=== PATIENT | female | born 1945 | race Asian ===

== ENCOUNTER 2020-03-29 12:36 | Emergency (ER) | payer MEDICARE, MEDICAID ==
[~2020-03-29] VITALS: Ht 154.9 cm; Wt 56.7 kg
[2020-03-29 12:45] VITALS: BP 132/80
[2020-03-29] MEDS ORDERED: Ketorolac 30mg Inj IV ONE (13:00)
--- NOTE | 2020-03-29 13:04 | Emergency Room Report ---
History of Present Illness General Chief Complaint: Abdominal Pain Source: Patient, Family Member - Present Illness HPI Patient is a 74-year-old female past medical history of hypertension who presents to the ER complaining of generalized weakness for 1 week. Patient complains of myalgias and fatigue. She denies cough or chest pain. Her is home with flulike symptoms for the past week. Patient complains of nausea and nonbloody nonbilious vomitus. She denies any abdominal pain, dysuria or diarrhea. I note that in the triage note it says that she had abdominal pain but using a field project manager who speaks Hebrew patient denies any abdominal pain. Patient denies any rash. She denies any lower extremity pain or edema. Allergies: Coded Allergies: No Known Allergies (Unverified , 03/29/20) COVID-19 Screening Contact w/high risk pt: No Experienced COVID-19 symptoms?: Yes COVID-19 Testing performed SANITARY PLUMBER: No Patient History Reviewed Nursing Documentation: PMH: Agreed; PSxH: Agreed Nursing Documentation-PMH Hx Hypertension: Yes Review of Systems All Other Systems: negative except mentioned in HPI Physical Exam Vital Signs Date Time Temp Pulse Resp B/P (MAP) Pulse Ox O2 Delivery O2 Flow Rate FiO2 03/29/20 12:37 97.9 69 19 132/80 (97) 95 Room Air Sp02 EP Interpretation: reviewed, normal General Appearance: no apparent distress, alert, GCS 15, non-toxic Head: normocephalic, atraumatic Eyes: bilateral eye normal inspection, bilateral eye PERRL ENT: hearing grossly normal, normal pharynx, no angioedema, normal voice Neck: full range of motion, supple/symm/no masses Respiratory: chest non-tender, rhonchi, speaking full sentences Cardiovascular #1: regular rate, rhythm, no edema Gastrointestinal: normal bowel sounds, non tender, soft, non-distended, no guarding, no rebound Rectal: deferred Genitourinary: no CVA tenderness Musculoskeletal: normal range of motion, no calf tenderness, no lower extremity edema Neurologic: protein chemist III-XII nml as tested, oriented x3 Psychiatric: no suicidal/homicidal ideation Skin: no rash Lymphatic: no adenopathy Medical Decision Making Diagnostic Impression: Primary Impression: Pneumonia Additional Impression: Myalgia ER Course Patient pending ER work-up, treatment, reevaluation, and final disposition. Patient signed out to at 1400. EKG Diagnostic Results Troponin ordered: Yes When was troponin ordered?: Mar 29, 2020 EKG Time: 13:06 EP Interpretation: Sierra Lucas MD Rate: normal - 62 bpm Rhythm: NSR ST Segments: no acute changes ASA given to the pt in ED: No Rhythm Strip Diag. Results Rhythm Strip Time: 13:31 EP Interpretation: yes Rate: 92 bpm Rhythm: NSR, no PVC's, no ectopy Chest X-Ray Diagnostic Results Chest X-Ray Diagnostic Results : Chest X-Ray Ordered: Yes # of Views/Limited/Complete: 1 View Indication: Shortness of Breath EP Interpretation: Yes Interpretation: no effusion, no pneumothorax, other - Right lower lobe patchy infiltrate Impression: Other - PNEUMONIA Electronically Signed by: Sierra Lucas MD Last Vital Signs Date Time Temp Pulse Resp B/P (MAP) Pulse Ox O2 Delivery O2 Flow Rate FiO2 03/29/20 12:37 97.9 69 19 132/80 (97) 95 Room Air Condition: Unknown Additional Instructions: Please note that this report is being documented using Ar[employer]ule technology. This can lead to erroneous entry secondary to incorrect interpretation by the dictating instrument. Sierra Lucas M.D. Mar 29, 2020 13:04
[2020-03-29] MEDS ORDERED: dexAMETHasone 10mg/ml Inj IV ONE (13:30)
[2020-03-29] MEDS ORDERED: Albuterol ud Inhalation HHN ONE (13:30)
--- NOTE | 2020-03-29 13:33 | Diagnostic Imaging Report ---
FILM CXR 1 VIEW History: Pain Comparison: None Findings: Single view chest. Heart size appears mildly prominent. Ill- defined right lower lobe opacities. Mild interstitial prominence. Additional subtle opacity in the left upper lobe. No significant effusion or pneumothorax appreciated. No acute osseous abnormality with degenerative changes of the spine and shoulders. Aorta atherosclerosis. No evidence of mediastinal lymphadenopathy. Mild bronchial thickening. Impression: Right upper lobe and left upper lobe pneumonia along with bronchitis. Prominent heart size.
[2020-03-29] MEDS ORDERED: Cefepime HCl 2 GM in D5W 55 ML IVPB ONE (13:45)
[2020-03-29] MEDS ORDERED: Azithromycin 500 MG in NS 275 ML IV ONE (13:45)
[2020-03-29 14:07] LABS: ANION GAP 11 mmol/L (5-15); BLOOD UREA NITROGEN 13 mg/dL (7-18); CALCIUM 8.4 MG/DL (8.5-10.1); CARBON DIOXIDE 23 MMOL/L (21-32); CHLORIDE 100 MMOL/L (98-107); CREATININE 0.7 MG/DL (0.55-1.30); POTASSIUM 3.6 MMOL/L (3.5-5.1); SODIUM 134 MMOL/L (136-145)
[2020-03-29 14:11] LABS: BASOPHILS % (AUTO) 1.8 % (0.0-2.0); EOSINOPHILS % (AUTO) 0.1 % (0.0-3.0); HEMATOCRIT 41.1 % (37.0-47.0); HEMOGLOBIN 14.6 G/DL (12.0-16.0); MEAN CORPUSCULAR VOLUME 91 FL (80-99); MONOCYTES % (AUTO) 9.2 % (1.0-10.0); NEUTROPHILS % (AUTO) 71.9 % (45.0-75.0); PLATELET COUNT 117 K/UL (150-450); RED BLOOD COUNT 4.53 M/UL (4.20-5.40); RED CELL DISTRIBUTION WIDTH 11.3 % (11.6-14.8); WHITE BLOOD COUNT 4.6 K/UL (4.8-10.8)
[2020-03-29 14:17] LABS: ALANINE AMINOTRANSFERASE 42 U/L (12-78); ALBUMIN 3.6 G/DL (3.4-5.0); ALBUMIN/GLOBULIN RATIO 0.9 (1.0-2.7); ALKALINE PHOSPHATASE 53 U/L (46-116); ASPARTATE AMINO TRANSFERASE 50 U/L (15-37); BILIRUBIN,TOTAL 0.5 MG/DL (0.2-1.0)
[2020-03-29 14:24] LABS: INR 0.9 (0.9-1.1)
[2020-03-29 14:43] LABS: APPEARANCE,URINE CLEAR; BILIRUBIN, URINE NEGATIVE (NEGATIVE); COLOR,URINE YELLOW; GLUCOSE, URINE (UA) NEGATIVE (NEGATIVE); KETONES,URINE 2+ (NEGATIVE); LEUKOCYTE ESTERASE ,URINE NEGATIVE (NEGATIVE); NITRITE,URINE NEGATIVE (NEGATIVE); PH,URINE 6 (4.5-8.0); PROTEIN,URINE 2+ (NEGATIVE); UROBILINOGEN,URINE NORMAL MG/DL (0.0-1.0)
[2020-03-29 14:48] VITALS: BP 116/62
[2020-03-29] MEDS ORDERED: ZITHROMAX250 MG ORAL (15:48)
[2020-03-29] MEDS ORDERED: ROBITUSSIN COU118 M1 ORAL (15:48)
[2020-03-29] MEDS ORDERED: ONDANSETRON ODT4 MG BC (15:48)
--- NOTE | 2020-03-29 15:52 | Emergency Room Report ---
Physical Exam Vital Signs Date Time Temp Pulse Resp B/P (MAP) Pulse Ox O2 Delivery O2 Flow Rate FiO2 03/29/20 12:37 97.9 69 19 132/80 (97) 95 Room Air Sp02 EP Interpretation: reviewed, normal Medical Decision Making Diagnostic Impression: Primary Impression: Pneumonia Additional Impressions: Myalgia COVID-19 ER Course I, Dr Celestina Mccarty, have assumed care of the patient. Initial workup, history, and physical performed by previous provider has been reviewed by myself and I have performed my own physical exam of the patient. 74-year-old female presents with myalgias, fatigue, and nonspecific abdominal pain. Patient is well-appearing and afebrile. Abdominal exam is nontender and nonperitoneal. No CVA tenderness palpation. Urinalysis is negative for UTI. Patient tested COVID positive and this is likely the symptoms for her nonspecific abdominal pain. Initial EKG had ectopy, therefore repeat EKG was performed. TWI V1-V6 are stable. No ST depressions in inferior leads. No ectopy. Doubt ACS. Initial troponin was negative x1. Delta troponin negative. Repeat EKG is negative for STEMI. Labs otherwise showed elevated inflammatory markers and mildly elevated BNP. Chest x-ray showed right lower lobe pneumonia as well as left-sided pneumonia, consistent with multifocal pneumonia/COVID-19. ED intervention included azithromycin, cefepime, breathing treatment, steroids with relief of symptoms. The patient denies any bloody stool and has no pain out of proportion to exam, and no significant risk factors for mesenteric ischemia such as atrial fibrillation or severe PAD/PVD (peripheral arterial / vascular disease), thus definitive workup to rule out mesenteric ischemia was not pursued. Patient is afebrile, without any significant tenderness in the RUQ, and a negative [place] sign. The patients presentation does not appear to be consistent with acute cholecystitis and thus definitive imaging to rule it out was not pursued. The patients symptoms are not consistent with ACS (acute coronary syndrome), symptoms are not exertional, EKG without obvious ischemic change, and symptoms x 7 days. The patient was nontoxic with benign vital signs. They did not meet admission criteria and was stable for outpatient therapy, under the current guideline. The patient was instructed to be home quarantined, and appropriate precautions were given. The patient was educated and instructed to notify a healthcare professional if they develop difficulty breathing, chest pain, palpitations, fever or other concerning symptoms. These instructions were given to the patient in both verbal and written forms. The patient was given an opportunity to ask questions. The patient was discharged with written instructions for COVID-19, including strict ED return precautions. EKG Diagnostic Results HATTIE Adrian 12-lead EKG (interpreted by me) Time: 1306 Indication: Rhythm analysis Tracing visualized and Interpreted by me. Rhythm: Normal sinus rhythm Rate: 62 bpm QTc: 379 Morphology: No_significant_ST_elevations_or_depressions, No STEMI Impression: Sinus rhythm. PVCs. Ectopy ST changes in the inferior leads, however this is obscured by wandering baseline and ectopy. No STEMI. No reciprocal changes Twi V1-V6 12-lead EKG (interpreted by me) Time: 1554 Indication: Rhythm analysis Tracing visualized and Interpreted by me. Rhythm: Sinus bradycardia Rate: 55 bpm QTc: 461 Morphology: No_significant_ST_elevations_or_depressions, No STEMI Impression: Sinus bradycardia. T wave inversions inferior leads. T wave inversions V1 through V6 (stable from EKG #1). Rhythm Strip Diag. Results Rhythm Strip Time: 15:46 EP Interpretation: yes Rate: 54 Rhythm: NSR, no PVC's, no ectopy Chest X-Ray Diagnostic Results Chest X-Ray Diagnostic Results : HATTIE Adrian Chest X-Ray: Views: [ 1 ] view(s) Indication: cough Findings: Normal heart size. Mediastinum normal. Impression: RLL PNA, LLL PNA, GGO The X-ray(s) were independently viewed and interpreted contemporaneously Electronically signed by Celestina martin DO Reevaluation Time: 15:46 Last Vital Signs Date Time Temp Pulse Resp B/P (MAP) Pulse Ox O2 Delivery O2 Flow Rate FiO2 03/29/20 14:48 97.9 60 14 116/62 97 Room Air Status: improved Disposition: HOME, SELF-CARE Admit Decision Time: 17:00 Condition: Stable Scripts Guaifenesin/D-Methorphan Hb/Pe (ROBITUSSIN COUGH-COLD CF LIQ*) 118 Ml Liquid 5 ML ORAL Q6H PRN for FOR COUGH, #118 ML Prov: Celestina Mccarty D.OMinna 03/29/20 Ondansetron Odt* (ZOFRAN ODT*) 4 Mg Tab.rapdis 4 MG BC EVERY 8 HOURS, #10 TAB 0 Refills Prov: Celestina Mccarty D.O. 03/29/20 Azithromycin* (ZITHROMAX*) 250 Mg Tablet 250 MG ORAL DAILY, #6 TAB 0 Refills Take two tables once daily for 1 day, then one tablet once daily for 4 days. Prov: Celestina Mccarty D.O. 03/29/20 Referrals: NON PHYSICIAN (PCP) Patient Instructions: Community-Acquired Pneumonia, Adult Additional Instructions: Instructions for patient/building maintenance engineer: Follow up with your physician in 1-2 days. Follow-up with your doctor sooner if your condition requires a more timely clinical reevaluation. Return to the emergency department immediately if you feel that your condition is worsening or if you have any new or concerning symptoms. Review your discharge instructions and take any prescriptions given as instructed. [facility] PROVIDES FREE OR LOW-COST HEALTH SERVICES TO PEOPLE WHO CAN SHOW PROOF THAT THEY LIVE IN [facility]. TO FIND MORE CLINICS PARTNERED WITH [facility] TO PROVIDE SERVICE, PLEASE CALL . Your evaluation suggests that you are suffering from a viral infection producing a viral syndrome. You can sign up for testing with [facility] at the following website as discussed [email or web address] Symptoms of a viral syndrome may include fever, sore throat, headache, body aches and pains, generalized weakness and fatigue, and runny nose. You do not show signs or symptoms suggestive of a serious or life threatening illness. This illness may be caused by a number of different viruses, including Influenza A or B or COVID-19. These viruses are highly contagious and spread rapidly from person to person via coughing and sneezing of the virus or by contaminated surface contact with nasal or other respiratory secretions. These viruses cause a similar combination of signs and symptoms which are typically much more severe than the common cold. Typically they begin with the rapid onset of fever, often high (over 102), body aches, fatigue, headache, and usually upper respiratory tract infections symptoms such as cough, runny nose, and sore throat. The illness typically lasts 7-10 days, with the fever and feelings of weakness and body aches usually lasting 3-5 days. Your own immune system fights off these infections. Only rarely do secondary bacterial infections occur (such as bacterial pneumonia) and can be serious. At this time your symptoms do not appear serious, however, there are limitations to online visits and if you are not improving you may need to be evaluated by a doctor in person and that doctor may need to do additional tests. INSTRUCTIONS: Illnesses such as yours typically resolve on their own with time however you must remember to stay hydrated and drink 2-3 times your normal fluid intake, as fever and your increased metabolism in fighting the infection uses more water. Fever control is important to help you feel better and to help prevent dehydration. Acetaminophen is an excellent choice for fever control and other symptoms (as long as you are not allergic to the medication). Rest is also important in helping your body fight this infection. Over the counter cough and decongestant medications are safe (as long as you dont have uncontrolled high blood pressure) and may help the cough and congestion slightly. As these viruses are highly contagious, good hand washing habits, and covering your cough and sneeze help prevent spread. Fever can be a sign of a serious infection and it is imperative that you go directly to an Emergency Department for serious symptoms such as weakness, confusion, significant shortness of breath, abdominal pain, or severe headache. Close follow up with a physician is important if you are not improving over the next few days or you experience worsening of your symptoms. Although it is impossible to know at this point if you have COVID-19 (the [place] virus), please quarantine yourself and anyone else that is residing with you for the longer of the following time periods: 14 days OR 3 days after the last of your symptoms has resolved CONTACT THE DOCTOR RIGHT AWAY if you develop worsening symptoms such as shortness of breath, chest pain, neck stiffness, confusion or any other new, worsening, or concerning symptoms. For emergencies contact 911 immediately. Celestina Mccarty D.O. Mar 29, 2020 15:52
[2020-03-29 17:06] VITALS: BP 116/62
[2020-03-29 17:18] VITALS: BP 116/62
== END 2020-03-29 19:00 | disposition home or self-care (01) ==
LOC: EMR 13:20
DX: U07.1 COVID-19 (principal); J12.89 Other viral pneumonia; M79.10 Myalgia, unspecified site; I10 Essential (primary) hypertension
CPT/HCPCS: 36415; 71045; 80053; 81003; 82728; 82803; 83605; 83615; 83735; 83880; 84484; 85025; 85379; 85610; 85730; 86140; 86710; 87040; 93005; 94640; 96361; 96365; 96367; 96375; 99284; J0456; J1885; J2405; J7050; U0002